=== PATIENT | female | born 1960 | race African-American/Black ===

== ENCOUNTER 2019-01-06 21:22 | Inpatient (IN) | payer MEDICAID ==
[~2019-01-06] VITALS: Ht 165.1 cm; Wt 126.1 kg
[2019-01-06 21:22] VITALS: BP 165/82
--- NOTE | 2019-01-06 21:22 | NUR ---
PATIENT BIB EMS TO ER BED 10.
--- NOTE | 2019-01-06 21:30 | NUR ---
ASSUMED CARE OF PT AT THIS TIME. C/O DIFFUSE ABDOMINAL PAIN X 8 HOURS W/ CONSTIPATION. LAST BM X 1 DAY AGO. NO N/V. PT IS AAOX3; PATIENT STATES PAIN OF 8/10; VSS; PATIENT POSITIONED FOR COMFORT; HOB ELEVATED; BEDRAILS UP X2; BED DOWN. ER MD MADE AWARE OF PT STATUS. WILL CONTINUE TO MONITOR.
--- NOTE | 2019-01-06 21:46 | NUR ---
EKG PERFORMED AT BEDSIDE. PT COVERED IN GOWN AND BLANKET DURING PROCEDURE.
[2019-01-06] MEDS ORDERED: NUTR30LI3 GT (22:03)
[2019-01-06] MEDS ORDERED: ASPI81EC98 GT (22:03)
[2019-01-06] MEDS ORDERED: ACET-2619 GT (22:03)
[2019-01-06] MEDS ORDERED: HYDR-5122 GT (22:03)
[2019-01-06] MEDS ORDERED: ATOR40TA GT (22:03)
[2019-01-06] MEDS ORDERED: FERR325E14 GT (22:03)
[2019-01-06] MEDS ORDERED: INSU100S10 SC (22:03)
[2019-01-06] MEDS ORDERED: AMLO5TAB GT (22:03)
[2019-01-06] MEDS ORDERED: ASCO500T45 GT (22:03)
[2019-01-06] MEDS ORDERED: HYDR-1098 GT (22:03)
[2019-01-06] MEDS ORDERED: LOV40I SUBQ (22:03)
[2019-01-06] MEDS ORDERED: DOCU50SO2 GT (22:03)
[2019-01-06] MEDS ORDERED: SLIDE SUBQ (22:03)
[2019-01-06] MEDS ORDERED: PRON INH (22:03)
[2019-01-06] MEDS ORDERED: MULT9LIQ GT (22:03)
[2019-01-06] MEDS ORDERED: ACET-9234 GT (22:03)
[2019-01-06] MEDS ORDERED: GLU1I IM (22:03)
[2019-01-06] MEDS ORDERED: MODA200T52 GT (22:03)
[2019-01-06 22:20] LABS: BASOPHILS # (AUTO) 0.1 K/uL (0.00-0.22); BASOPHILS % (AUTO) 0.5 % (0.0-2.0); EOSINOPHILS # (AUTO) 0.4 K/uL (0-0.4); EOSINOPHILS % (AUTO) 4.2 % (0.0-4.0); HEMATOCRIT 33.9 % (36-48); HEMOGLOBIN 10.6 g/dL (12.0-16.0); LYMPHOCYTES # (AUTO) 2.5 K/uL (2.5-16.5); LYMPHOCYTES % (AUTO) 23.5 % (20.5-51.1); MEAN CORPUSCULAR HEMOGLOBIN 25 pg (27-31); MEAN CORPUSCULAR HGB CONC 31 g/dL (33-37); MEAN CORPUSCULAR VOLUME 78.7 fL (80-94); MONOCYTES # (AUTO) 0.7 K/uL (0.8-1.0); MONOCYTES % (AUTO) 6.7 % (1.7-9.3); NEUTROPHILS # (AUTO) 6.9 K/uL (1.8-7.7); NEUTROPHILS % (AUTO) 65.1 % (42.2-75.2); PLATELET COUNT (AUTO) 426 K/uL (140-450); RED BLOOD CELL COUNT(AUTO) 4.31 MIL/uL (4.20-5.40); RED CELL DISTRIBUTION WIDTH 18.6 % (11.6-13.7); WHITE BLOOD COUNT (AUTO) 10.6 K/uL (4.8-10.8)
[2019-01-06 22:31] LABS: ANION GAP 6.3 (8-16); CARBON DIOXIDE 33.8 mmol/L (21-32); CREATININE 0.5 mg/dL (0.6-1.3); POTASSIUM 4.1 mmol/L (3.5-5.1)
[2019-01-06 22:37] LABS: ALBUMIN 2.9 g/dL (3.4-5.0); TOTAL BILIRUBIN 0.3 mg/dL (0.0-1.0)
[2019-01-06] MEDS ORDERED: LORazepam 2 MG/ML VIAL IVP ONE (22:40)
[2019-01-06 23:05] LABS: PROTHROMBIN TIME 10.2 secs (10.8-13.4)
[2019-01-06 23:16] LABS: APPEARANCE,URINE CLEAR (CLEAR); BILIRUBIN,URINE NEGATIVE (NEGATIVE); BLOOD, URINE NEGATIVE (NEGATIVE); COLOR,URINE YELLOW (YELLOW); LEUKOCYTE ESTERASE ,URINE TRACE (NEGATIVE); NITRITE, URINE NEGATIVE (NEGATIVE); UGLUCOSE NEGATIVE (NEGATIVE)
[2019-01-06 23:19] LABS: RBC,URINE 0-5 (RARE) /HPF (0-5); URINE AMORPHOUS URATE 4+ /HPF (None Seen); WBC,URINE 0-5 (RARE) /HPF (0-5)
[2019-01-06] MEDS ORDERED: MORPHINE SULFATE 4 MG/ML SYR IVP ONE (23:25)
[2019-01-06] MEDS ORDERED: NACL 0.9% 1,000 ML IV SCH (23:44)
[2019-01-06] MEDS ORDERED: HYDROcodone/APAP 5/325 MG 1 TAB TAB PO PRN (23:45)
[2019-01-06] MEDS ORDERED: DOCUSATE SODIUM 100 MG GELCAP PO PRN (23:45)
[2019-01-06] MEDS ORDERED: ONDANSETRON 4 MG/2 ML VIAL IM/IVP PRN (23:45)
[2019-01-06] MEDS ORDERED: INSULIN LISPRO SLIDING SCALE 100 UNITS/ML VIAL SUBQ PRN (23:45)
[2019-01-06] MEDS ORDERED: ZOLPIDEM 5 MG TAB PO PRN (23:45)
[2019-01-06] MEDS ORDERED: ACETAMINOPHEN 325 MG TAB PO PRN (23:45)
[2019-01-06] MEDS ORDERED: LORazepam 2 MG/ML VIAL IM/IVP PRN (23:45)
[2019-01-06] MEDS ORDERED: DEXTROSE 50% 50 ML SYR IVP PRN (23:45)
[2019-01-07] MEDS ORDERED: ALBUTEROL SULFATE/IPRATROPIU 3 ML SOL IH PRN (00:10)
[2019-01-07] MEDS ORDERED: DEXT 5% / NACL 0.9% 500 ML IV ONE (00:10)
--- NOTE | 2019-01-07 00:20 | NUR ---
Patient will be admitted to care of [facility]. Admitted to TELE. Will go to room 124A. Belongings list completed. Report to CHANA SCOTT.
[2019-01-07 00:30] VITALS: BP 155/88
--- NOTE | 2019-01-07 00:30 | NUR ---
RECEIVED BEDSIDE REPORT FROM CHANA QUEZADA, PATIENT IN BED, UNABLE TO AMBULATE, APHASIC BUT ABLE TO UNDERSTAND AND COMMUNICATE IN YES AND NO MANNER. ON TRAC TO T-BAR AT 3 L/MIN. O2SAT 96%, LUNG SOUNDS CLEAR, NO SIGNS OF RESPIRATORY DISTRESS, BP 155/85 HR 88 WITHIN BASELINE. ABDOMEN FIRM, TENDER, PATIENT NODDED YES TO PAIN IN ABDOMEN, WILL MEDICATE ACCORDING TO ORDER. VERNON CATH IN PLACE DRAINING DARK YELLOW URINE, G-TUBE IN PLACE, DRESSING INTACT. IV N RIGHT AC 20 G PATIENT AND DRESSING INTACT. NOTED SKIN PEELING AND SCABS ON LOWER EXTREMITIES. PATIENT REFUSED TO BE TURNED AND SKIN CHECKED ON BACK. PICTURE OF LOWER EXTREMITIES TAKEN AND PLACED IN CHART. MRSA SCREEN COLLECTED AND SENT TO LAB. BED IN LOWEST POSITION, CALL LIGHT WITHIN REACH, WILL CONTINUE TO MONITOR.
[2019-01-07 00:31] LABS: PHOSPHORUS 4.4 mg/dL (2.5-4.9); THYROID STIMULATING HORMONE 1.29 uIU/mL (0.34-3.74)
[2019-01-07] MEDS ORDERED: HYDROcodone/APAP 5/325 MG 1 TAB TAB GT PRN (01:05)
[2019-01-07] MEDS ORDERED: ACETAMINOPHEN 325 MG TAB GT PRN (01:05)
[2019-01-07] MEDS: BISACODYL 10 MG SUPP RC ONE ×2 (01:05→02:10)
[2019-01-07] MEDS ORDERED: NON-FORMULARY ITEM (Hydralazine HCl (Hydralazine Hcl) 25 MG) GT PRN (01:05)
[2019-01-07] MEDS ORDERED: SODIUM PHOSPHATE 118 ML ENEM RC PRN (01:05)
[2019-01-07] MEDS: NACL 0.9% 1,000 ML IV SCH ×2 (01:30→18:36)
[2019-01-07] MEDS: MORPHINE SULFATE 4 MG/ML SYR IVP PRN ×3 (02:11→21:46)
--- NOTE | 2019-01-07 02:11 | NUR ---
MEDICATED FOR PAIN 09/08, PATIENT REFUSED SUPPOSITORY DUE TO NOT WANTING TO BE TURNED. WILL TRY AGAIN AT LATER TIME. STARTED NS AT 60 ML/HR.
--- NOTE | 2019-01-07 02:30 | NUR ---
DID NOT APPLY SCD OR YELLOW SOCKS DUE TO SKIN PEELING ON FEET AND LEGS. WILL CONTINUE TO MONITOR.
--- NOTE | 2019-01-07 03:00 | NUR ---
SPOKE WITH DR BECERRA REGARDING CLARIFICATION ON TUBE FEEDING ORDER, ORDER TO START AT 25 ML INCREASE BY 10 EVERY HOUR IF TOLERATING WELL TO GOAL OF 75 ML/HR. NO RESIDUES NOTED, STARTED TUBE FEEDINGS WITH GLUCERNA 1.2 AT 25 ML.
[2019-01-07 04:00] VITALS: BP 148/75
--- NOTE | 2019-01-07 04:00 | NUR ---
INCREASED FEEDING TO 35 ML/HR, NO RESIDUES NOTED.
[2019-01-07] MEDS ORDERED: INSULIN NPH HUMAN ISOPHANE U SCH (05:00)
--- NOTE | 2019-01-07 05:00 | NUR ---
FEEDING INCREASED TO 45 PATIENT TOLERATING WELL
--- NOTE | 2019-01-07 05:36 | NUR ---
PATIENT REFUSED SUPPOSITORY WILL WASTE SINCE ALREADY OPEN, PATIENT REFUSED BACK ASSESSMENT CHARGE NURSE AWARE. PATIENT BG 124 NO COVERAGE NEEDED.
--- NOTE | 2019-01-07 06:00 | NUR ---
INCREASED FEEDING TO 55 ML/HR PATIENT TOLERATING WELL.
[2019-01-07 06:23] LABS: BASOPHILS # (AUTO) 0.1 K/uL (0.00-0.22); BASOPHILS % (AUTO) 0.5 % (0.0-2.0); EOSINOPHILS # (AUTO) 0.5 K/uL (0-0.4); HEMATOCRIT 35.2 % (36-48); HEMOGLOBIN 10.8 g/dL (12.0-16.0); LYMPHOCYTES # (AUTO) 2.5 K/uL (2.5-16.5); LYMPHOCYTES % (AUTO) 24.1 % (20.5-51.1); MEAN CORPUSCULAR HEMOGLOBIN 25 pg (27-31); MEAN CORPUSCULAR HGB CONC 31 g/dL (33-37); MEAN CORPUSCULAR VOLUME 80.1 fL (80-94); MONOCYTES # (AUTO) 0.6 K/uL (0.8-1.0); MONOCYTES % (AUTO) 6.1 % (1.7-9.3); NEUTROPHILS # (AUTO) 6.6 K/uL (1.8-7.7); NEUTROPHILS % (AUTO) 64.3 % (42.2-75.2); PLATELET COUNT (AUTO) 424 K/uL (140-450); RED CELL DISTRIBUTION WIDTH 18.9 % (11.6-13.7); WHITE BLOOD COUNT (AUTO) 10.2 K/uL (4.8-10.8)
[2019-01-07] MEDS: BLOOD GLUCOSE MONITORING 1 DEV DEV FS SCH ×5 (06:34→21:43)
[2019-01-07 06:52] LABS: ANION GAP 12.1 (8-16); CARBON DIOXIDE 30.7 mmol/L (21-32); CREATININE 0.5 mg/dL (0.6-1.3); POTASSIUM 3.8 mmol/L (3.5-5.1)
--- NOTE | 2019-01-07 06:52 | NUR ---
RESIDUALS AT 10 ML INCREASED TO 65 ML/HR.
[2019-01-07 06:56] LABS: CHOL/HDL RATIO 2.4 (1-4.5)
[2019-01-07 06:57] LABS: MAGNESIUM 1.8 mg/dL (1.8-2.4); PHOSPHORUS 4.3 mg/dL (2.5-4.9)
--- NOTE | 2019-01-07 07:26 | NUR ---
ENDORSED PATIENT TO DAY SHIFT NURSE, PATIENT STABLE.
--- NOTE | 2019-01-07 07:30 | NUR ---
RECEIVED BEDSIDE REPORT FROM COMPETITIVE INTELLIGENCE MANAGER NURSE. AOX4. ON TRACH T BAR 3L/ MIN. NO SIGNS OF DISTRESS NOTED. IV ON R AC 20G,PATENT AND INTACT, INFUSING PER MD ORDER. IV SITE IS CLEAN AND DRY. RESPIRATION IS EVEN AND UNLABORED. UNABLE TO AMBULATE, BEDBOUND. G TUBE IS ON L ABD INFUSING GLUCERNA 1.2 AT 65ML/HR. CHECKED RESIDUAL AND GOT 10 ML. INSTRUCTED PATIENT TO USE THE CALL LIGHT FOR ANY ASSISTANCE. SAFETY MEASURES IN PLACE. BED IN LOW POSITION, CALL LIGHT WITHIN REACH.
[2019-01-07 08:00] VITALS: BP 134/83
[2019-01-07] MEDS ORDERED: hydrALAZINE 25 MG TAB GT PRN (08:00)
--- NOTE | 2019-01-07 08:13 | NUR ---
PATIENT HAS BEEN SCREENED AND CATEGORIZED HIGH NUTRITION RISK. PATIENT WILL BE SEEN WITHIN 1-2 DAYS OF ADMISSION. 01/07/19-01/08/[address]
[2019-01-07] MEDS ORDERED: MODAFINIL 200 MG GT SCH (09:00)
[2019-01-07] MEDS ORDERED: NON-FORMULARY ITEM (Aspirin (Aspir 81) 81 MG) GT SCH (09:00)
--- NOTE | 2019-01-07 09:03 | NUR ---
RECEIVED PATIENT TRACH PORTEX 8 TO COOL AEROSOL AT 30% FIO2. AIRWAY SECURE AND PATENT. BREATH SOUNDS RHONCHI TO CLEAR WITH SUCTIONING. SUCTIONED SMALL AMOUNT OF THICK YELLOW SECRETIONS. NO SOB. NO WHEEZING. NO HHN INDICATED AT THIS TIME. NO RESPIRATORY DISTRESS NOTED AT THIS TIME. WILL CONTINUE TO MONITOR.
[2019-01-07] MEDS: ENOXAPARIN 30 MG/0.3 ML SYR SUBQ SCH ×2 (09:47→21:38)
[2019-01-07] MEDS: ASPIRIN 81 MG TAB.CHEW GT SCH (09:48)
[2019-01-07] MEDS: amLODIPine 5 MG TAB GT SCH (09:49)
[2019-01-07] MEDS: FERROUS SULFATE 300 MG/5 ML UDC GT SCH ×2 (09:50→21:34)
[2019-01-07] MEDS: DOCUSATE 100 MG/10 ML UDC GT SCH ×2 (09:51→21:34)
[2019-01-07] MEDS ORDERED: INSULIN NPH HUMAN ISOPHANE 100 UNIT/ML VIAL SUBQ SCH (10:00)
--- NOTE | 2019-01-07 10:08 | NUR ---
CHECKED G-TUBE RESIDUAL 10 ML. ADMINISTERED MEDS VIA G-TUBE AND FLUSHED WITH 10ML WATER. PT TOLERATED WELL. NO SIGNS OF DISTRESS NOTED.
--- NOTE | 2019-01-07 10:15 | NUR ---
CALLED [facility] AND SPOKE TO CHANA RUFFIN. PER LALY, PT RARELY NEEDS ANY INSULIN COVERAGE DURING HER STAY IN SNF. SHE HAS AN ORDER OF HUMULIN Q6H ON SLIDING SCALE.
--- NOTE | 2019-01-07 11:00 | NUR ---
ASSISTED HANDKERCHIEF SAMPLE CLERK IN CLEANING AND REPOSITIONING PATIENT. PATIENT HAD A BM. TOLERATED WELL EVEN THOUGH PATIENT REFUSED TO BE TURNED AT START. RIGHT BUTTOCK OPEN WOUND NOTED, PICTURE TAKEN AND NOTIFIED MD. CLEANSED WITH NS, PAT DRIED, AND APPLIED OPTIFOAM AT THIS TIME. WILL CONTINUE TO MONITOR.
[2019-01-07 12:00] VITALS: BP 138/67
[2019-01-07] MEDS ORDERED: LACTULOSE 20 GM/30 ML UDC GT SCH (13:00)
--- NOTE | 2019-01-07 13:14 | NUR ---
ADMINISTERED MED PER MD ORDER AND FLUSHED WITH 20ML WATER. PT TOLERATED WELL.
--- NOTE | 2019-01-07 13:39 | NUR ---
01/07/19 RD INITIAL ASSESSMENT COMPLETED PLEASE REFER TO NUTRITION ASSESSMENT UNDER CARE ACTIVITY FOR ESTIMATED NUTRITIONAL NEEDS. 1. RECOMMEND GLUCERNA 1.2 @ 45 ML/HR + PROSOURCE NO CARB TID - THIS WILL PROVIDE 1416 KCALS AND 95 G PROTEIN. THIS WILL MEET 100% OF ESTIMATED ENERGY NEEDS AND 83% OF ESTIMATED PROTEIN NEEDS 2. RECOMMEND FLUSH [address] TO FOLLOW-UP 2-3 DAYS, HIGH RISK CHIKA PALMER RD
--- NOTE | 2019-01-07 14:10 | NUR ---
CM NOTE PER [facility] [place] PH# [phone] EXT [phone], FOR PATIENT'S TRANSPORTATION TO GO BACK TO SNF, TO CALL [facility] PH# [phone] AND INFORM [facility] WHAT KIND OF TRANSPORT PATIENT WILL NEED AND IF PATIENT WILL NEED [facility]. PER [place], PATIENT HAS [facility] AND NO AUTHORIZATION NEEDED FOR [facility].
--- NOTE | 2019-01-07 15:30 | NUR ---
PATIENT REFUSED SUPPOSITORY, EVEN THOUGH EDUCATION ON CONSTIPATION WAS PROVIDED. REFUSED TO BE TURNED OR TOUCHED AT THIS TIME. WILL CONTINUE MONITOR.
[2019-01-07 16:00] VITALS: BP 135/68
--- NOTE | 2019-01-07 16:00 | NUR ---
PATIENT REFUSED TO BE TURNED AT THIS TIME. CHECKED CHUCKS, PATIENT DRY AT THIS TIME. INTERDRY CLOTH APPLIED TO ABDOMINAL AND BREAST FOLDS. PATIENT TOLERATED WELL. WILL CONTINUE TO MONITOR.
[2019-01-07] MEDS: BISACODYL 10 MG SUPP RC SCH ×2 (16:25→16:32)
--- NOTE | 2019-01-07 19:25 | NUR ---
BEDSIDE REPORT GAVE TO BLOW MOULDING MACHINE OPERATOR NURSE. PT IS IN STABLE CONDITION.
--- NOTE | 2019-01-07 19:33 | NUR ---
RECEIVED PATIENT TRACH PORTEX 8 TO COOL AEROSOL AT 30% FIO2, 9LPM. AIRWAY SECURE AND PATENT. BREATH SOUNDS CLEAR WITH SUCTIONING. SUCTIONED SCANT AMOUNT OF THICK CREAMY SECRETIONS. SHOOK HEAD "NO" TO FEELING NO SOB OR DISTRESS AT THIS TIME. NO WHEEZING. NO HHN INDICATED AT THIS TIME. WILL CONTINUE TO MONITOR.
--- NOTE | 2019-01-07 19:50 | NUR ---
PATIENT IS AWAKE, RESPIRATION EVEN UNLABORED ON TRACH TO T-BAR AT 3L/MIN. SKIN IS WARM AND DRY. IV PATENT AND INTACT. VERNON CATHETER IN PLACE DRAINING DARK YELLOW URINE. G-TUBE IN PLACE. SKIN PEELING AND SCABS ON LOWER EXTREMITIES NOTED. PLAN OF CARE WAS DISCUSSED. BED IS IN LOW POSITION. CALL LIGHT WITHIN REACH.
[2019-01-07 20:00] VITALS: BP 145/64
[2019-01-07] MEDS ORDERED: ATORVASTATIN 20 MG TAB GT SCH (21:00)
--- NOTE | 2019-01-07 21:30 | NUR ---
MEDS WERE GIVEN PER ORDER. RESIDUAL 1CC FROM THE G-TUBE FEEDING. VITALS STABLE. PATIENT COMPLAIN OF PAIN. PRN PAIN MEDS ADMINISTERED. WILL CONTINUE TO MONITOR.
--- NOTE | 2019-01-07 21:50 | NUR ---
GAVE PATIENT PERICARE, CHANGED WOUND DRESSING ON THE RIGHT BUTTOCKS AND RIGHT KNEE.
[2019-01-08] VITALS: BP 135/55
--- NOTE | 2019-01-08 | NUR ---
PATIENT IS SLEEPING COMFORTABLY RESPIRATION EVEN AND UNLABORED ON TRACH TO T-PIECE. NO DISTRESS NOTED AT THIS TIME. CALL LIGHT WITHIN REACH
[2019-01-08 04:00] VITALS: BP 135/50
[2019-01-08] MEDS: MORPHINE SULFATE 4 MG/ML SYR IVP PRN ×2 (04:20→09:03)
--- NOTE | 2019-01-08 05:16 | NUR ---
TITRATED PATIENT TO 28% fIo2. AFTER 15 MINUTES SATURATIONS ARE AT 98%. NO SOB OR DISTRESS. WILL CONTINUE TO MONITOR. REPLACED STERILE WATER BOTTLE.
[2019-01-08 06:21] LABS: T4 (THYROXINE) 8.2 ug/dL (4.5-12.0)
[2019-01-08] MEDS: BLOOD GLUCOSE MONITORING 1 DEV DEV FS SCH (06:50)
--- NOTE | 2019-01-08 07:19 | NUR ---
ENDORSED PATIENT TO TIMI LOCKETT NURSE FOR CONTINUITY OF CARE. PATIENT IS STABLE AT THIS TIME
--- NOTE | 2019-01-08 07:20 | NUR ---
RECEIVED REPORT FROM WORKERS COMPENSATION CLAIMS EXAMINER NURSE. PT IN STABLE CONDITION. RESPIRATIONS EVEN AND UNLABORED. TRACH TO T-BAR, O2 AT 3L PER MIN. IV INTACT AND PATENT. SAFETY MEASURES IN PLACE. BED IN LOW POSITION. BED ALARM ON. CALL LIGHT AT BED SIDE. WILL CONTINUE TO MONITOR.
[2019-01-08 07:25] LABS: ANION GAP 5.3 (8-16); CARBON DIOXIDE 30.7 mmol/L (21-32); CREATININE 0.5 mg/dL (0.6-1.3)
[2019-01-08 07:27] LABS: BASOPHILS % (AUTO) 0.4 % (0.0-2.0); EOSINOPHILS # (AUTO) 0.3 K/uL (0-0.4); EOSINOPHILS % (AUTO) 3.6 % (0.0-4.0); HEMATOCRIT 33.5 % (36-48); HEMOGLOBIN 10.4 g/dL (12.0-16.0); LYMPHOCYTES # (AUTO) 1.8 K/uL (2.5-16.5); LYMPHOCYTES % (AUTO) 19.1 % (20.5-51.1); MEAN CORPUSCULAR HEMOGLOBIN 25 pg (27-31); MEAN CORPUSCULAR HGB CONC 31 g/dL (33-37); MEAN CORPUSCULAR VOLUME 80.1 fL (80-94); MONOCYTES # (AUTO) 0.6 K/uL (0.8-1.0); MONOCYTES % (AUTO) 6.4 % (1.7-9.3); NEUTROPHILS # (AUTO) 6.7 K/uL (1.8-7.7); NEUTROPHILS % (AUTO) 70.5 % (42.2-75.2); PLATELET COUNT (AUTO) 405 K/uL (140-450); RED BLOOD CELL COUNT(AUTO) 4.18 MIL/uL (4.20-5.40); RED CELL DISTRIBUTION WIDTH 18.5 % (11.6-13.7); WHITE BLOOD COUNT (AUTO) 9.5 K/uL (4.8-10.8)
[2019-01-08 07:28] LABS: MAGNESIUM 1.8 mg/dL (1.8-2.4); PHOSPHORUS 4.2 mg/dL (2.5-4.9)
[2019-01-08 08:00] VITALS: BP 147/68
[2019-01-08] MEDS ORDERED: CEFT1VIA7 IJ (08:43)
[2019-01-08] MEDS ORDERED: LACT10CA1 GT (08:43)
[2019-01-08] MEDS ORDERED: MAGNESIUM HYDROXIDE 2400 MG/30 ML UDC GT SCH (09:00)
[2019-01-08] MEDS: BISACODYL 10 MG SUPP RC SCH ×2 (09:00→09:06)
[2019-01-08] MEDS: FERROUS SULFATE 300 MG/5 ML UDC GT SCH (09:02)
[2019-01-08] MEDS: DOCUSATE 100 MG/10 ML UDC GT SCH (09:02)
[2019-01-08] MEDS: ENOXAPARIN 30 MG/0.3 ML SYR SUBQ SCH (09:05)
[2019-01-08] MEDS: ASPIRIN 81 MG TAB.CHEW GT SCH (09:06)
[2019-01-08] MEDS: amLODIPine 5 MG TAB GT SCH (09:06)
--- NOTE | 2019-01-08 09:15 | NUR ---
PT REFUSED BISACODYL SUPPOSITORY AT THIS TIME. WILL CONTINUE TO MONITOR.
--- NOTE | 2019-01-08 10:29 | NUR ---
CALLED [facility] AND GAVE ME ROOM # [id number], CALLED [facility] AND SPOKE TO PASSION WITH RES.# [id number], SCHEDULED MOLD MAKER PLASTIC MOLDS IS 12 NOON.
[2019-01-08] MEDS ORDERED: MAGN400S60 GT (14:10)
--- NOTE | 2019-01-08 21:15 | NUR ---
Received notification that patient nare MRSA screen is positive for MRSA. Called [facility] and spoke with Elzbieta, her primary nurse, and notified her of result. Result faxed to with confirmation.
--- NOTE | 2019-01-10 09:00 | NUR ---
WOUND CARE CONSULT NOT DONE, PT. DISCHARGED.
== END 2019-01-08 12:45 | DRG 254 ==
LOC: MED 21:22 → MTU 23:49 → UNDOADMIN 01-07
PROVIDERS: ADMIT General Practice; ATTEND General Practice
DX: K59.00 Constipation, unspecified (principal); J96.10 Chronic respiratory failure, unspecified whether with hypoxia or hypercapnia; E44.0 Moderate protein-calorie malnutrition; I11.0 Hypertensive heart disease with heart failure; N39.0 Urinary tract infection, site not specified; Z93.0 Tracheostomy status; E11.65 Type 2 diabetes mellitus with hyperglycemia; E66.01 Morbid (severe) obesity due to excess calories; K72.90 Hepatic failure, unspecified without coma; Z68.42 Body mass index [BMI] 45.0-49.9, adult; Z71.3 Dietary counseling and surveillance; G47.33 Obstructive sleep apnea (adult) (pediatric); Z87.81 Personal history of (healed) traumatic fracture; Z87.820 Personal history of traumatic brain injury; E78.5 Hyperlipidemia, unspecified
CPT/HCPCS: 36415; 36600; 51702; 71045; 74018; 76700; 80048; 80053; 81001; 82140; 82150; 82550; 82803; 82948; 83036; 83605; 83690; 83735; 83880; 84100; 84436; 84443; 84484; 85025; 85610; 85730; 87040; 87081; 87086; 93005; 93925; 93970; 96374; 99285; J1650; J1815; J2270; J7620; Q0092